=== PATIENT | male | born 2000 | race Caucasian/White ===

== ENCOUNTER 2021-05-22 17:36 | Outpatient (CLI) | payer BC, SELFPAY ==
--- NOTE | ~2021-05-22 | XR_ITS ---
EXAMINATION: XR forearm LT 2V, XR wrist LT min 3V DATE: 05/22/2021 17:51 INDICATION: Left wrist and distal forearm pain TECHNIQUE: 1. AP an lateral views of the left forearm were obtained. 2. PA, ulnar deviation, lateral and oblique views of the left wrist were obtained. 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 There is a second tiny ossicle in the region of the triangular fibrocartilage complex which could represent either an additional tiny nonunited f racture fragment or heterotopic ossification related to associated soft tissue injury. There is also an old healed distal left radial metaphyseal fracture which is healed 10 degrees dorsal angulation. A lignment is otherwise normal. No acute fractures identified. Joint spaces are normal. Soft tissues ar e unremarkable. No left elbow joint effusion. IMPRESSION: 1. No acute osseous abnormality. 2. Chronic healed distal diaphyseal fracture of the left radius and chronic nonunited ulnar styloid f racture. Reviewed, dictated and finalized at location A. IMPRESSION: 1. No acute osseous abnormality. 2. Chronic healed distal diaphyseal fracture of the left radius and chronic non united ulnar styloid fracture.
== END 2021-05-22 17:37 ==
PROVIDERS: PCP Family Medicine; Visit Provider Family Medicine
DX: M79.602 Pain in left arm (principal)
CPT/HCPCS: 73090; 73110